=== PATIENT | male | born 1970 | race Two or more races ===

== ENCOUNTER → 2017-01-28 | Outpatient (CLI) | payer OTHER | END | disposition home or self-care (01) | LOC: CFH 07:26 | PROVIDERS: ATTEND Surgery | DX: K46.9 Unspecified abdominal hernia without obstruction or gangrene (principal) | CPT/HCPCS: 76705 ==

== ENCOUNTER 2017-05-13 12:01 | Day surgery (SDC) | payer OTHER ==
[~2017-05-13] VITALS: Ht 167.6 cm; Wt 74.4 kg
[~2017-05-13 12:01] MED LIST: None per pt
[2017-05-13 12:21] VITALS: BP 127/88
[2017-05-13] MEDS ORDERED: LACTATED RINGERS 1,000 ML IV SCH (12:27)
[2017-05-13] MEDS ORDERED: LIDOCAINE 1%, 2ML ONE (12:29)
[2017-05-13] MEDS ORDERED: LIDOCAINE 1%, 2ML SQ PRN (12:30)
[2017-05-13] MEDS ORDERED: MIDAZOLAM 1 MG/ML, 2ML ONE ×2 (14:10)
[2017-05-13] MEDS ORDERED: HYDROmorphone 1 MG/ML, 1ML IV PRN (14:30)
[2017-05-13] MEDS ORDERED: MEPERIDINE/PF 25MG/0.5ML IVPush PRN (14:30)
[2017-05-13] MEDS ORDERED: ACETAMINOPHEN 325 MG TABLET PO PRN (14:30)
[2017-05-13] MEDS ORDERED: OXYcodone 5 MG/5 ML ORAL.SOL UDC PO PRN ×2 (14:30→16:00)
[2017-05-13] MEDS ORDERED: FENTANYL PF 100 MCG/2ML IV PRN (14:30)
[2017-05-13] MEDS ORDERED: ONDANSETRON 2MG/ML, 2ML IVPush PRN (14:30)
[2017-05-13] MEDS ORDERED: KETOROLAC 30 MG/1 ML IV PRN (14:30)
[2017-05-13] MEDS ORDERED: BUPIVACAINE/PF 0.5% ONE (14:34)
[2017-05-13] MEDS ORDERED: EPINEPHRINE 1 MG/ML, 1ML ONE (14:34)
[2017-05-13] MEDS ORDERED: CEFAZOLIN 1,000 MG ONE (14:45)
[2017-05-13] MEDS ORDERED: KETOROLAC 30 MG/1 ML ONE (14:45)
[2017-05-13] MEDS ORDERED: PROPOFOL 10 MG/ML, 20ML ONE (14:45)
[2017-05-13] MEDS ORDERED: DEXAMETHASONE 4 MG/ML, 1ML ONE (14:45)
[2017-05-13] MEDS ORDERED: ONDANSETRON 2MG/ML, 2ML ONE (14:45)
[2017-05-13] MEDS ORDERED: FENTANYL PF 100 MCG/2ML ONE (14:52)
[2017-05-13] MEDS ORDERED: BUPIVACAINE/PF-EPI 0.5% 1:200K INFIL ONE (14:58)
[2017-05-13] MEDS ORDERED: OXYcodone 5 MG/5 ML ORAL.SOL UDC ONE (15:41)
[2017-05-13] MEDS ORDERED: ACETAMINOPHEN 650 MG/20.3 ML UDC ONE (15:41)
== END 2017-05-13 17:00 | disposition home or self-care (01) ==
LOC: OUT 12:01
PROVIDERS: ATTEND Surgery
DX: D17.1 Benign lipomatous neoplasm of skin and subcutaneous tissue of trunk (principal)
CPT/HCPCS: 21931; 88304; J0171; J0690; J1100; J1885; J2250; J2405; J2704; J3010; J3490; J7120; 88305